=== PATIENT | female | born 1960 | race Caucasian/White ===

== ENCOUNTER 2017-03-22 10:51 | Emergency (ER) | payer OTHER ==
[~2017-03-22] VITALS: Ht 167.6 cm; Wt 75.0 kg
[2017-03-22 11:05] VITALS: Ht 167.6 cm; Wt 75.0 kg
[2017-03-22] MEDS ORDERED: ONDANSETRON 4 MG INJ IV STA (11:05)
[2017-03-22] MEDS ORDERED: SOD CHLORIDE 0.9% 1,000 ML IV STA (11:05)
[2017-03-22] MEDS ORDERED: MECLIZINE 12.5 MG TAB PO ONE (11:30)
[2017-03-22 11:38] LABS: BASOPHILS % 0.4 % (0.0-2.0); EOSINOPHILS # 0.1 10^3/ul (0.0-0.5); EOSINOPHILS % 1.2 % (0.0-7.0); HEMOGLOBIN 14.5 g/dl (12.0-16.0); LYMPHOCYTES # 2.7 10^3/ul (0.8-2.9); LYMPHOCYTES % 39.9 % (15.0-51.0); MEAN CORPUSCULAR HEMOGLOBIN 28.9 pg (29.0-33.0); MEAN CORPUSCULAR HGB CONC 33.7 g/dl (32.0-37.0); MEAN CORPUSCULAR VOLUME 85.7 fl (82.0-101.0); MEAN PLATELET VOLUME 9.1 fl (7.4-10.4); MONOCYTE # 0.4 10^3/ul (0.3-0.9); MONOCYTES % 6.4 % (0.0-11.0); NEUTROPHIL # 3.5 10^3/ul (1.6-7.5); NEUTROPHILS % 51.8 % (39.0-77.0); PLATELET COUNT 354 10^3/UL (140-415); RED BLOOD COUNT 5.02 10^6/ul (4.20-5.40); RED CELL DISTRIBUTION WIDTH 12.2 % (11.5-14.5); WHITE BLOOD COUNT 6.7 10^3/ul (4.8-10.8)
[2017-03-22 11:58] LABS: ANION GAP 17 (8-16); BLOOD UREA NITROGEN 16 mg/dl (7-20); CALCIUM 9.1 mg/dl (8.4-10.2); CARBON DIOXIDE 23 mmol/L (21-31); CHLORIDE 107 mmol/L (97-110); CREATININE 0.69 mg/dl (0.44-1.00); GLUCOSE 116 mg/dl (70-220); INR 0.91; PROTIME 12.2 Sec (12.2-14.2); SODIUM 143 mmol/L (135-144)
[2017-03-22 11:59] LABS: PARTIAL THROMBOPLASTIN TIME 26.7 Sec (25.0-35.0)
--- NOTE | 2017-03-22 12:00 | RADRPT ---
PROCEDURE: Chest x-ray CLINICAL INDICATION: Stroke TECHNIQUE: Chest single view COMPARISON: None FINDINGS: The heart is normal in size. The pulmonary vessels are normal in caliber. The lungs are clear. Th e costophrenic angles are sharp. The visualized bony thorax is unremarkable. IMPRESSION: No acute cardiopulmonary disease. Low lung volumes. RPTAT: HH .Dale Perez MD, Date Time Electronically viewed and signed by .Dale Perez MD, on 03/22/2017 12:00 .W/
[2017-03-22 12:11] LABS: TROPONIN-I < 0.012 ng/ml (0.00-0.12)
--- NOTE | 2017-03-22 12:36 | RADRPT ---
PROCEDURE: CT brain without contrast CLINICAL INDICATION: Head pain. Concern for stroke TECHNIQUE: CT of the brain without contrast was performed on a multidetector CT scanner, with multi planar reformats. One or more of the following dose reduction techniques were used: Automated expos ure control, adjustment in mA and / or kV according to patient size, use of iterative reconstructive technique. CTDIvol = 42 mGy; DLP = 630 mGy-cm. COMPARISON: None available FINDINGS: No acute intracranial hemorrhage is identified. No extra-axial fluid collection is seen. There is no mass effect. No midline shift is identified. Ventricles and sulci are within normal limits for size and configuration. The density of the brain appears unremarkable and mcleod-white junctions appear preserved Calvarium and skull base are intact. Chronic-appearing left mastoid disease is noted. IMPRESSION: No acute intracranial pathology identified. Consider further evaluation with MRI as clinically indic ated. RPTAT: VV .Earnest Cuevas MD, MD Date Time Electronically viewed and signed by .Earnest Cuevas MD, on 03/22/2017 12:35 .O/
[2017-03-22] MEDS ORDERED: MECL12.574 PO (13:25)
[2017-03-22] MEDS ORDERED: ONDA4TAB14 PO (13:25)
--- NOTE | 2017-03-22 13:26 | ERD ---
ER Documentation Chief Complaint Date/Time DATE: 03/22/17 TIME: 13:25 Chief Complaint DIZZINESS HPI Patient is a 56-year-old female with hypertension, knee pain, and recent ear infection who presents with dizziness. She woke up this morning with her head spinning. She feels that the room is spinning. Last night she felt fine. She has nausea. She has no shortness of breath and no pain. She tried her blood pressure medication. She does have a primary doctor. ROS All systems reviewed and are negative except as per history of present illness. Medications Home Meds Active Scripts Ciprofloxacin Hcl/Dexameth (Ciprodex Otic Suspension) 7.5 Ml Drops.susp, 4 DROP LEFT EAR BID for 7 Days, EA Prov:BRYAN DIEZ MD 03/22/17 Ondansetron (Ondansetron Odt) 4 Mg Tab.rapdis, 4 MG PO Q6H Y for NAUSEA AND/OR VOMITING, #10 TAB Prov:BRYAN DIEZ MD 03/22/17 Meclizine Hcl* (Antivert*) 12.5 Mg Tab, 25 MG PO Q6H Y for DIZZINESS, #20 TAB Prov:BRYAN DIEZ MD 03/22/17 Allergies Allergies: Coded Allergies: No Known Allergy (Unverified , 03/22/17) PMhx/Soc Medical and Surgical Hx: pt denies Medical Hx, pt denies Surgical Hx Hx Alcohol Use: No Hx Substance Use: No Hx Tobacco Use: No Smoking Status: Never smoker FmHx Family History: No diabetes Physical Exam Vitals Vital Signs Date Time Temp Pulse Resp B/P Pulse Ox O2 Delivery O2 Flow Rate FiO2 03/22/17 11:05 97.4 71 24 171/107 100 Physical Exam Const: Moderate distress secondary to dizziness Head: Atraumatic Eyes: Normal Conjunctiva ENT: Normal External Ears, Nose and Mouth. She has white discharge with black spots occluding the left tympanic membrane concerning for an otitis externa Neck: Full range of motion..~ No meningismus. Resp: Clear to auscultation bilaterally Cardio: Regular rate and rhythm, no murmurs Abd: Soft, non tender, non distended. Normal bowel sounds Skin: No petechiae or rashes Back: No midline or flank tenderness Ext: No cyanosis, or edema Neur: Awake and alert, cranial nerves II through XII intact, no slurred speech, strength is 5 out of 5 in all 4 extremities Psych: Normal Mood and Affect Result Diagram: 03/22/17 1125 03/22/17 1125 Results 24 hrs Laboratory Tests Test 03/22/17 11:25 White Blood Count 6.710^3/ul Red Blood Count 5.0210^6/ul Hemoglobin 14.5g/dl Hematocrit 43.0% Mean Corpuscular Volume 85.7fl Mean Corpuscular Hemoglobin 28.9pg Mean Corpuscular Hemoglobin Concent 33.7g/dl Red Cell Distribution Width 12.2% Platelet Count 44485^3/UL Mean Platelet Volume 9.1fl Neutrophils % 51.8% Lymphocytes % 39.9% Monocytes % 6.4% Eosinophils % 1.2% Basophils % 0.4% Nucleated Red Blood Cells % 0.0/100WBC Neutrophils # 3.510^3/ul Lymphocytes # 2.710^3/ul Monocytes # 0.410^3/ul Eosinophils # 0.110^3/ul Basophils # 0.010^3/ul Nucleated Red Blood Cells # 0.010^3/ul Prothrombin Time 12.2Sec Prothrombin Time Ratio 1.0 INR International Normalized Ratio 0.91 Activated Partial Thromboplast Time 26.7Sec Sodium Level 143mmol/L Potassium Level 4.0mmol/L Chloride Level 107mmol/L Carbon Dioxide Level 23mmol/L Anion Gap 17 Blood Urea Nitrogen 16mg/dl Creatinine 0.69mg/dl Glucose Level 116mg/dl Hemoglobin A1c 5.5% Calcium Level 9.1mg/dl Troponin I < 0.012ng/ml Current Medications Medications (Trade) Dose Ordered Sig/Mitch Route PRN Reason Start Time Stop Time Status Last Admin Dose Admin Sodium Chloride (NS) 1,000 ml @ 1,000 mls/hr Q1H STAT IV 03/22/17 11:05 03/22/17 12:04 DC 03/22/17 11:23 Ondansetron HCl (Zofran Inj) 4 mg ONCE STAT IV 03/22/17 11:05 03/22/17 11:06 DC 03/22/17 11:23 Meclizine HCl (Antivert) 25 mg ONCE ONCE PO 03/22/17 11:30 03/22/17 11:31 DC 03/22/17 11:23 Lorazepam (Ativan) 0.5 mg ONCE ONCE IV 03/22/17 14:00 03/22/17 14:01 03/22/17 13:51 Lorazepam (Ativan) 2 mg STK-MED ONCE .ROUTE 03/22/17 13:46 03/22/17 13:47 DC Procedures/MDM EKG read by me: Rate/Rhythm: Regular rate and rhythm at a rate of 67 Intervals: Normal Impression: No evidence of ischemia or arrhythmia CT brain shows chronic mastoid disease but no intracranial hemorrhage or mass per radiology. Patient is a 56-year-old female presents with dizziness and symptoms of vertigo. At this point I doubt stroke, intrarenal mass, or intracranial hemorrhage. I doubt meningitis. She does have what looks like an ear canal infection and I will treat her with Ciprodex drops. She will need to follow-up closely with her primary doctor as well as ENT within 24-48 hours. She can return for any worsening symptoms. The patient understands the plan and is okay for discharge at this time. She was given meclizine and Ativan as well as Zofran for her symptoms. She will be given a prescription for meclizine, Zofran , and Ciprodex drops to go home with. Departure Diagnosis: Primary Impression: Vertigo Additional Impression: Dizziness Condition: Fair Patient Instructions: Dizziness, Unk Cause, Vertigo, Unspecified Referrals: Your doctor Additional Instructions: Call your primary care doctor TOMORROW for an appointment during the next 1-2 days.See the doctor sooner or return here if your condition worsens before your appointment time. BRYAN DIEZ MD Mar 22, 2017 13:26
[2017-03-22] MEDS ORDERED: LORAZEPAM 2 MG INJ ONE (13:46)
[2017-03-22] MEDS ORDERED: CIPR7.5D4 LEFT EAR (13:46)
[2017-03-22] MEDS ORDERED: LORAZEPAM 2 MG INJ IV ONE (14:00)
[2017-03-22 14:03] VITALS: BP 128/88; PULSE 71; RESP 22
== END 2017-03-22 14:05 | disposition home or self-care (01) ==
LOC: E/R 10:51
DX: R42 Dizziness and giddiness (principal); R11.0 Nausea
CPT/HCPCS: 36415; 70450; 71010; 80048; 83036; 84484; 85025; 85610; 85730; 93005; 96374; 96375; J2060; J2405; J7030; Z7502; Z7610

== ENCOUNTER 2018-09-08 11:35 | Emergency (ER) | payer OTHER ==
[~2018-09-08] VITALS: Ht 170.2 cm; Wt 95.5 kg
[~2018-09-08 11:35] MED LIST: CEPH-443 PO; CIPR7.5D LEFT EAR; HYDR-4011 PO; IBUP-1561 PO; MECL12.574 PO; ONDA4TAB14 PO
[2018-09-08 11:38] VITALS: Ht 170.2 cm; Wt 95.5 kg
[2018-09-08] MEDS ORDERED: ONDANSETRON 4 MG INJ IV STA (12:19)
[2018-09-08] MEDS ORDERED: SOD CHLORIDE 0.9% 1,000 ML IV STA (12:19)
[2018-09-08] MEDS ORDERED: KETOROLAC 30 MG INJ IV STA (12:19)
[2018-09-08] MEDS ORDERED: CIPR500T4 PO (14:18)
[2018-09-08] MEDS ORDERED: IBUP-1542 PO (14:18)
[2018-09-08] MEDS ORDERED: HYDR-4011 PO (14:19)
[2018-09-08] MEDS ORDERED: CEFTRIAXONE 1 GM/50 ML (PMX) 50 ML IVPB ONE (14:30)
[2018-09-08 14:36] VITALS: BP 138/78; PULSE 86; RESP 20
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
== END 2018-09-08 14:37 | disposition home or self-care (01) ==
LOC: FTE 11:35
DX: N39.0 Urinary tract infection, site not specified (principal); M54.31 Sciatica, right side; R10.9 Unspecified abdominal pain
CPT/HCPCS: 36415; 72100; 74176; 80053; 81001; 83690; 84484; 85025; 87086; 93005; 96374; 96375; J0696; J1885; J2405; J7030; Z7502